=== PATIENT | male | born 1950 | race Caucasian/White ===

== ENCOUNTER 2017-08-06 13:35 | Outpatient (CLI) | payer MEDICARE ==
--- NOTE | 2017-08-06 16:19 | MRI ---
LUMBAR SPINE MRI WITHOUT IV CONTRAST: History: 67-year-old male with history of lumbar radiculopathy and right hip and leg pain for three weeks. Technique: Multiplanar, multisequence MRI examination of the lumbar spine is performed. FINDINGS: The conus medullaris is unremarkable terminating at L1-2. There is some generalized disc desiccation changes and ligament and facet hypertrophic changes. No significant central canal, lateral recess, or foraminal stenosis at L1-2 or L2-3. L3-4: There is diffuse disc bulging with ligament and facet hypertrophic changes with mild lateral re cess stenosis and an annular fissure. L4-5: Diffuse disc bulging with mild central canal and moderate bilateral lateral recess stenosis and moderate to severe bilateral foraminal stenosis. L5-S1: Severe diffuse disc bulging with somewhat more focal central protrusion with moderate central canal and lateral recess stenosis and moderate to severe bilateral foraminal stenosis. There is some mixed endplate changes at L5-S1 including some prominent type I changes. IMPRESSION: Significant disc bulging with central canal and lateral recess and foraminal stenosis at L5-S1 with m arked type 1 endplate changes. Disc bulging with annular fissure and mild to moderate canal, lateral recess, and foraminal stenosis at L4-5. Bilateral recess stenosis at L3-4 with annular fissure. POS: EFRAIN
== END 2017-08-06 13:36 | disposition home or self-care (01) ==
LOC: SCSMRI 13:35
PROVIDERS: ATTEND Family Medicine
DX: M51.16 Intervertebral disc disorders with radiculopathy, lumbar region (principal); M99.53 Intervertebral disc stenosis of neural canal of lumbar region
CPT/HCPCS: 72148

== ENCOUNTER 2018-02-06 13:01 | Outpatient (CLI) | payer MEDICARE ==
[~2018-02-06 13:01] MED LIST: Iopamidol 370 76% 100 ML VIAL ONE
--- NOTE | 2018-02-06 14:26 | CT ---
CT ARTERIOGRAM CHEST WITH AND WITHOUT IV CONTRAST WITH 3D MIP IMAGING: Date: 02/06/18 HISTORY: Aortic ectasia. FINDINGS: No focal parenchymal lung mass, infiltrate, pleural fluid, or pneumothorax. No enlarged lymph nodes a re evident within the mediastinum. There is prominent calcification throughout the arterial structures, including the coronary arteries. No enlarged lymph nodes. Normal branching of the great vessels from the aortic arch. No filling defects are evident within the thoracic aorta. Ascending aorta just above the aortic valve is 4.4 cm AP diameter. The upper descending aorta is 3.2 cm. The aorta just above the level of the d iaphragm is 2.7 cm. IMPRESSION: 1. Mild ectasia ascending aorta. No evidence of dissection. 2. Prominent atherosclerosis. POS: EFRAIN
== END 2018-02-06 13:02 | disposition home or self-care (01) ==
LOC: SCSCT 13:01
PROVIDERS: ATTEND Internal Medicine Cardiovascular Disease
DX: I77.819 Aortic ectasia, unspecified site (principal); I70.90 Unspecified atherosclerosis
CPT/HCPCS: 71275; 82565

== ENCOUNTER 2019-08-30 11:23 | Observation (INO) | payer MEDICARE ==
[2019-08-30 12:00] LABS: #Eosinphils 0.6 thou/uL (0.0-0.7); #Lymphocytes 1.8 thou/uL (1.20-3.40); #Monocytes 0.9 thou/uL (0.11-0.59); #Neutrophils 4.8 thou/uL (1.40-6.50); %Basophils 0.3 % (0.0-1.0); %Lymphocytes 22.6 % (21.0-51.0); %Monocytes 10.7 % (0.0-10.0); %Neutrophils 59.4 % (42.0-75.0); Hemoglobin 15.1 g/dL (14.0-18.0); Mean Corpuscular HGB CONC 33.4 g/dL (32.0-36.0); Mean Corpuscular Hemoglobin 32.3 pg (27.0-31.0); Mean Corpuscular Volume 96.8 fL (78.0-98.0); Mean Platelet Volume 9.6 fL (7.4-10.4); Platelet Count 183 thou/uL (130-400); RBC Distribution Width 13.7 % (11.5-14.5); Red Blood Cell (RBC) Count 4.69 mill/uL (4.70-6.10); White Blood Cell (WBC) Count 8.1 thou/uL (4.8-10.8)
[2019-08-30 12:30] LABS: ALT (SGPT) 19 U/L (8-55); AST (SGOT) 24 U/L (5-34); Albumin 4.2 g/dL (3.4-4.8); Alkaline Phosphatase 79 U/L (40-110); Anion Gap 13 mmol/L (10-20); BUN (Urea Nitrogen) 16 mg/dL (8.4-25.7); Bilirubin, Total 0.9 mg/dL (0.2-1.2); CK (CPK) 86 U/L (30-200); Calc. Creatinine Clearance 0 mL/min (70-130); Calcium 9.4 mg/dL (7.8-10.44); Carbon Dioxide 27 mmol/L (23-31); Chloride 106 mmol/L (98-107); Estimated GFR-MDRD 65; Globulin 2.7 g/dL (2.4-3.5); Glucose 113 mg/dL (83-110); Lipase 32 U/L (8-78); Potassium 4.6 mmol/L (3.5-5.1); Protein, Total 6.9 g/dL (5.8-8.1); Sodium 141 mmol/L (136-145)
--- NOTE | 2019-08-30 12:30 | CT ---
Exam: CT brain PROVIDED CLINICAL HISTORY: Syncope COMPARISON: 04/23/2015 FINDINGS: The ventricular system is normal in size and morphology. No evidence for intracranial hemorrhage or mass effect. The extracranial soft tissues and osseous structures demonstrate no evidence for an acute abnormality. Chronic microvascular ischemic changes are demonstrated with remote lacunar infarc tions involving right caudate and left lentiform nuclei. Vascular calcifications are seen. IMPRESSION: No evidence for intracranial hemorrhage or mass effect.
--- NOTE | 2019-08-30 12:41 | RAD ---
EXAM: Portable chest PROVIDED CLINICAL HISTORY: Syncope COMPARISON: 10/28/2015 FINDINGS: Cardiac and mediastinal silhouette is within normal limits. No focal consolidation, pleural fluid or pneumothorax evident. Median sternotomy changes are again seen. IMPRESSION: No evidence for an acute cardiopulmonary process.
[2019-08-30] MEDS ORDERED: Acetaminophen 500 MG TAB ONE (14:05)
[2019-08-30] MEDS ORDERED: Aspirin Chewable 81 MG TAB ONE (14:05)
[2019-08-30 15:02] LABS: Bilirubin Negative (Negative); Blood, Urine Negative (Negative); Clarity Clear (Clear); Glucose, Urine (Dipstick) Normal (Negative); Leukocyte Negative Leu/uL (Negative); Nitrite Negative (Negative); Protein, Urine (Dipstick) Negative (Neg-Trace); Urobilinogen Normal mg/dL (Less than 2)
[2019-08-30 16:41] LABS: Troponin I Less than 0.010 ng/mL (< 0.028)
[2019-08-30] MEDS ORDERED: Labetalol HCl 100 MG/20 ML VIAL SLOW IVP PRN (16:52)
[2019-08-30] MEDS ORDERED: hydrALAZINE 20 MG/ML VIAL SLOW IVP PRN (16:52)
--- NOTE | 2019-08-30 17:05 | PDOC.HHP ---
Hospitalist HPI - History of Present Illness Dizziness, Passing out History of Present Illness: PCP: Dr. Handy ([place]) The patient is a 69/M with PMH significant for CAD, CABG x 3, HTN, HLD, that presents to the ER for the above complaint. The patient reports that he "passed out" after attempting to sit up in bed this morning. His spouse witnessed the event and states that his eyes rolled to the back of his head and he fell back and to his left side as he was sitting up in bed. Spouse denies any post-ictal state. Reports mild headache for past couple days, denies any focal weakness, slurred speech or difficulty swallowing. Denies any recent head trauma or falls. Denies any chest pain or heart palpitations. Denies any recent surgery or changes in medications. Denies any fever or chills. ED Course: T 98.2, BP 180/95, HR 47, RR 18, Sp02 97% RA EKG SB 47 bpm Trop negative CXR negative for acute cardiopulmonary process CT brain negative for acute hemorrhage UA unremarkable Given: 500mls NS bolus tylenol 1gm ASA 324mg Hospitalist ROS - Review of Systems Constitutional: denies: fever, chills, sweats, weakness, malaise, other Eyes: denies: pain, vision change, conjunctivae inflammation, eyelid inflammation, redness, other ENT: denies: ear pain, ear discharge, nose pain, nose discharge, nose congestion , mouth pain, mouth swelling, throat pain, throat swelling, other Respiratory: denies: cough, dry, shortness of breath, hemoptysis, SOB with excertion, pleuritic pain, sputum, wheezing, other Cardiovascular: denies: chest pain, palpitations, orthopnea, paroxysmal noc. dyspnea, edema, light headedness, other Gastrointestinal: denies: nausea, vomiting, abdominal pain, diarrhea, constipation, melena, hematochezia, other Genitourinary: denies: dysuria, frequency, incontinence, hematuria, retention, other Musculoskeletal: denies: neck pain, shoulder pain, arm pain, back pain, hand pain, leg pain, foot pain, other Skin: denies: rash, lesions, marvin, bruising, other Neurological: denies: numbness, change in speech, confusion Hospitalist History - Past Medical History Source: patient, family Cardiac: reports: CAD, HTN, Hyperlipidemia Pulmonary: reports: asthma Gastrointestinal: reports: GERD Psych: reports: Anxiety, Depression, Other (ADHD) Rheumatologic: reports: Gout Renal/: reports: Benign prostatic enlarg. Endocrine: reports: no pertinent history Dermatology: reports: no pertinent history - Past Surgical History Past Surgical History: reports: CABG, Total Knee Replacement (Left), Other ( right rotator cuff) - Family History Family History: reports: cardiac disorder - Social History Smoking Status: Never smoker Alcohol: reports: Occassional Drugs: reports: none Living Situation: With Family Occupation: Lives with spouse in [place], retired from [employer] Activity level: independent ambulation - Exam General Appearance: NAD, awake alert Eye: PERRL, anicteric sclera ENT: normocephalic atraumatic, moist mucosa Neck: supple, no JVD, no thyromegaly, no lymphadenopathy, no carotid bruit Heart: RRR, no murmur, no gallops, no rubs, normal peripheral pulses Respiratory: CTAB, no wheezes, no rales, no ronchi Gastrointestinal: soft, non-tender, non-distended, normal bowel sounds, no guarding, no rigidity Extremities: no clubbing, no edema Skin: no lesions, no rashes Neurological: cranial nerve grossly intact, no focal deficits Musculoskeletal: normal tone, normal strength Psychiatric: normal affect, A&O x 3 Hospitalist Results - Labs Result Diagrams: 08/30/19 11:51 08/30/19 11:51 Lab results: WBC 8.1 thou/uL (4.8-10.8) 08/30/19 11:51 Hgb 15.1 g/dL (14.0-18.0) 08/30/19 11:51 Hct 45.4 % (42.0-52.0) 08/30/19 11:51 MCV 96.8 fL (78.0-98.0) 08/30/19 11:51 Plt Count 183 thou/uL (130-400) 08/30/19 11:51 Neutrophils % 59.4 % (42.0-75.0) 08/30/19 11:51 Sodium 141 mmol/L (136-145) 08/30/19 11:51 Potassium 4.6 mmol/L (3.5-5.1) 08/30/19 11:51 Chloride 106 mmol/L (98-107) 08/30/19 11:51 Carbon Dioxide 27 mmol/L (23-31) 08/30/19 11:51 BUN 16 mg/dL (8.4-25.7) 08/30/19 11:51 Creatinine 1.11 mg/dL (0.7-1.3) 08/30/19 11:51 Glucose 113 mg/dL (83-110) H 08/30/19 11:51 Calcium 9.4 mg/dL (7.8-10.44) 08/30/19 11:51 Total Bilirubin 0.9 mg/dL (0.2-1.2) 08/30/19 11:51 AST 24 U/L (5-34) 08/30/19 11:51 ALT 19 U/L (8-55) 08/30/19 11:51 Alkaline Phosphatase 79 U/L (40-110) 08/30/19 11:51 Creatine Kinase 86 U/L (30-200) 08/30/19 11:51 Troponin I Less than 0.010 ng/mL (< 0.028) 08/30/19 16:10 B-Natriuretic Peptide 44.1 pg/mL (0-100) 08/30/19 11:51 Serum Total Protein 6.9 g/dL (5.8-8.1) 08/30/19 11:51 Albumin 4.2 g/dL (3.4-4.8) 08/30/19 11:51 Lipase 32 U/L (8-78) 08/30/19 11:51 Urine Ketones Negative mg/dL (Negative) 08/30/19 14:50 Urine Blood Negative (Negative) 08/30/19 14:50 Urine Nitrite Negative (Negative) 08/30/19 14:50 Ur Leukocyte Esterase Negative Kraig/uL (Negative) 08/30/19 14:50 - EKG Interpretation EKG: sinus bradycardia, 47 bpm - Radiology Interpretation Chest x-ray Status: report reviewed by me CT scan - head Status: report reviewed by me Hospitalist H&P A/P - Plan Plan: Impression Syncope R/O CVA HTN, chronic HLD, chronic CAD, chronic GERD Gout Anxiety and Depression ADHD Plan: hospital monitor Trend troponins Order MRI brain and CD US Obtain most recent Echo/MULTIMEDIA TECHNICIAN from [facility] (Dr. Morin) Consult Cardiology - Dr. Morin PT/OT Continue ASA/Plavix Restart home meds when reconciled GI and DVT prophylaxis Full Code JAMESOA Rosana Gaviria [phone]
[2019-08-30 20:08] LABS: Troponin I 0.019 ng/mL (< 0.028)
[2019-08-31 01:39] VITALS: BMI 27.7
[2019-08-31 04:43] VITALS: TEMP 97.9
[2019-08-31 04:58] LABS: #Basophils 0.1 thou/uL (0.0-0.2); #Eosinphils 0.5 thou/uL (0.0-0.7); #Lymphocytes 2.2 thou/uL (1.20-3.40); #Monocytes 0.9 thou/uL (0.11-0.59); #Neutrophils 3.9 thou/uL (1.40-6.50); %Basophils 1.1 % (0.0-1.0); %Eosinophils 6.8 % (0.0-10.0); %Lymphocytes 28.6 % (21.0-51.0); %Neutrophils 51.5 % (42.0-75.0); Hemoglobin 13.7 g/dL (14.0-18.0); Mean Corpuscular Hemoglobin 31.6 pg (27.0-31.0); Mean Corpuscular Volume 95.7 fL (78.0-98.0); Mean Platelet Volume 9.6 fL (7.4-10.4); Platelet Count 170 thou/uL (130-400); RBC Distribution Width 13.7 % (11.5-14.5); Red Blood Cell (RBC) Count 4.34 mill/uL (4.70-6.10); White Blood Cell (WBC) Count 7.6 thou/uL (4.8-10.8)
[2019-08-31 05:16] LABS: Anion Gap 13 mmol/L (10-20); BUN (Urea Nitrogen) 18 mg/dL (8.4-25.7); Calc. Creatinine Clearance 85 mL/min (70-130); Calcium 8.8 mg/dL (7.8-10.44); Carbon Dioxide 26 mmol/L (23-31); Chloride 108 mmol/L (98-107); Estimated GFR-MDRD 77; Glucose 94 mg/dL (83-110); Potassium 3.7 mmol/L (3.5-5.1); Sodium 143 mmol/L (136-145)
[2019-08-31 08:19] LABS: Cardiac Risk 3.9 (Less than 4.5)
[2019-08-31] MEDS ORDERED: DULoxetine 60 MG CAP PO SCH (09:00)
[2019-08-31] MEDS ORDERED: clonazePAM 0.5 MG TABLET PO SCH (09:00)
[2019-08-31] MEDS ORDERED: Aspirin 81 mg Enteric Coated Tablet PO SCH (09:00)
[2019-08-31] MEDS ORDERED: Atenolol 25 MG TAB PO SCH (09:00)
[2019-08-31] MEDS ORDERED: Enoxaparin Sodium 40 MG/0.4 ML SYRINGE SC SCH (09:00)
[2019-08-31] MEDS ORDERED: Finasteride 5 MG TAB PO SCH ×2 (09:00)
[2019-08-31] MEDS ORDERED: ATENOLOL 50 MG PO SCH (09:00)
[2019-08-31] MEDS ORDERED: Lisinopril 20 MG TAB PO SCH (09:00)
[2019-08-31] MEDS ORDERED: Non-Formulary Item 1 EACH (Lisinopril [Zestril] 40 MG) PO SCH (09:00)
[2019-08-31] MEDS ORDERED: Atenolol 50 MG TAB PO SCH (09:00)
[2019-08-31] MEDS ORDERED: Clopidogrel Bisulfate 75 MG TAB PO SCH (09:00)
--- NOTE | 2019-08-31 09:02 | ULT ---
CAROTID DOPPLER: Date; 08/31/2019 PROVIDED CLINICAL HISTORY: Syncope. FINDINGS: Del Cid scale and color Doppler sonography with spectral analysis was performed of the extracranial montelongo tid system bilaterally. There is no sonographic evidence for hemodynamically significant internal car otid artery stenosis by peak systolic velocity or ratio criteria. Antegrade flow is seen in the verte bral arteries. Scattered atherosclerotic plaque is demonstrated bilaterally. IMPRESSION: No sonographic evidence for hemodynamically significant internal carotid artery stenosis. POS: TPC
--- NOTE | 2019-08-31 09:09 | MRI ---
BRAIN MRI WITHOUT CONTRAST: Date: 08/31/2019 COMPARISON: None. HISTORY: Evaluate for acute infarction, clinical concern for stroke. History of syncope. TECHNIQUE: Multiplanar, multisequence MR imaging of the brain without contrast. FINDINGS: The diffusion-weighted imaging demonstrates no evidence for acute infarction. The axial gradient echo imaging demonstrates no evidence for intracranial hemorrhage. There are a few scattered foci of increased T2 and FLAIR signal within the periventricular and deep w mingo matter, most prominent adjacent to the body of the left lateral ventricle anteriorly, most consi stent with small vessel disease. Arterial flow-voids at the axial level of the skull base appear unre markable on the T2-weighted imaging. Regional bone marrow signal intensity appears within normal limi ts. Arterial flow-voids at axial level of skull base appear grossly unremarkable. IMPRESSION: No MR evidence for intracranial hemorrhage or acute infarction. POS: PENG
[2019-08-31] MEDS: Acetaminophen 325 MG TAB PO PRN ×2 (09:39→13:32)
--- NOTE | 2019-08-31 10:33 | CON ---
DATE OF CONSULTATION: 08/31/2019 REASON FOR CONSULTATION: Syncope. HISTORY OF PRESENT ILLNESS: Mr. Gaviria is a very pleasant 69-year-old gentleman with past medical history of CAD, status post bypass surgery, who recently presented with syncope. He states he had 2 episodes of lightheadedness and dizziness prior to this episode. He then had a debbi syncopal episode. No nausea, vomiting, chest pain, pressure, shortness of breath, or associated symptoms present. He is found to be bradycardic with heart rate in the 40s. He is currently on atenolol 50 mg one p.o. q.a.m. in addition to Ritalin. He stopped taking Ritalin 2 days ago due to lightheadedness and dizziness. PAST MEDICAL HISTORY: Hypertension, CAD status post bypass surgery, diabetes mellitus, hypertension, depression. HOME MEDICATIONS: Include; 1. Testosterone. 2. Clonazepam. 3. Ritalin. 4. Atenolol. 5. Plavix. 6. Bupropion. 7. Cyclobenzaprine. 8. Lisinopril. 9. Atorvastatin. 10. Aspirin. 11. Finasteride. 12. Dulcolax. 13. Hydrocodone. 14. Nitrostat. 15. Duloxetine. PAST SURGICAL HISTORY: Bypass x3 in 2002. SOCIAL HISTORY: No current tobacco or alcohol use. REVIEW OF SYSTEMS: A 10-point review of systems is reviewed and is as above, otherwise negative. PHYSICAL EXAMINATION: GENERAL: Patient is a pleasant male who is in no acute distress. The patient appears their stated age. VITAL SIGNS: Blood pressure 157/89, pulse 48, temperature afebrile. NEUROLOGIC: The patient is alert and oriented x3 with no focal neurologic deficits. HEENT: Sclerae without icterus. Mouth has moist mucous membranes with normal pallor. NECK: No JVD. Carotid upstroke brisk. No bruits bilaterally. LUNGS: Clear to auscultation with unlabored respirations. BACK: No scoliosis or kyphosis. CARDIAC: Regular rate and rhythm with normal S1 and S2. No S3 or S4 noted. No significant rubs, murmurs, thrills, or gallops noted throughout the precordium. PMI is not displaced. There is no parasternal heave. ABDOMEN: Soft, nontender, nondistended. No peritoneal signs present. No hepatosplenomegaly. No abnormal striae. EXTREMITIES: 2+ femoral and 2+ dorsalis pedis pulses. No cyanosis, clubbing, or edema. SKIN: No gross abnormalities. PERTINENT LABORATORY DATA: Hemoglobin 13.7, hematocrit 41.6. Creatinine 0.96. Last stress test dated 12/2018; cardiac stress study, no significant ischemia with LVEF 51%. IMPRESSION: 1. Syncope. 2. Coronary artery disease. 3. Status post bypass surgery. RECOMMENDATIONS: Mr. Gaviria's last LVEF estimated 59% with no ischemia present on stress study performed six months ago. His symptoms likely related to bradycardia from atenolol. I would recommend stopping atenolol. I also counseled Mr. Gaviria on the CV risk of Ritalin. I am unsure whether this is truly playing a part. I would recommend MRI and carotid duplex. If felt to be negative and his heart rate improves during this hospitalization, will be okay for discharge with a 3-week event recorder. His BNP is also low, not suggesting cardiomyopathy whether systolic or diastolic dysfunction. Job ID: [id number]
[2019-08-31 12:51] VITALS: BP 131/79
[2019-08-31] MEDS ORDERED: traZODone HCl 50 MG TAB PO SCH (21:00)
[2019-08-31] MEDS ORDERED: Non-Formulary Item 1 EACH (Trazodone Hcl [Trazodone Hcl] 100 MG) PO SCH (21:00)
[2019-08-31] MEDS ORDERED: Atorvastatin Calcium 10 MG TAB PO SCH (21:00)
--- NOTE | 2019-08-31 22:49 | DIS ---
DATE OF ADMISSION: 08/30/2019 DATE OF DISCHARGE: 08/31/2019 DISCHARGE DISPOSITION: Home with outpatient physical therapy. FOLLOWUP: With Cardiology, Dr. Morin and primary care physician, Dr. Handy, as scheduled. No driving until cleared by Cardiology. Event monitor has been arranged. DISCHARGE MEDICATION: Atenolol was discontinued. All other home medications including aspirin and Plavix were left unchanged. INPATIENT DIRECTOR SEMICONDUCTOR: Cardiology, Dr. Morin. BRIEF HOSPITAL COURSE: Patient is a 69-year-old male with coronary artery disease, status post CABG; hypertension; and hyperlipidemia, presented to the emergency room after an episode of syncope. Please refer to the history and physical by nurse practitioner, Dwayne Kumar, for further details. The patient was admitted to the hospital with a diagnosis of syncope of unclear etiology. MRI of the brain was negative for acute CVA. Carotid Doppler was negative for hemodynamically significant stenosis. Please note that patient has had echocardiogram in the last few months at Dr. Morin's office. For this reason, this was not repeated. His chest x-ray was negative. CT scan of the brain was negative. Troponins were negative. Telemetry monitoring was negative for significant arrhythmias. Event monitor has been arranged. He was evaluated by Cardiology, Dr. Morin. Due to bradycardia, atenolol was discontinued. He understands the cardiovascular risk of Ritalin. However, it is unsure whether this is the cause of syncope. He has been cleared by Cardiology for discharge with an event monitor. No driving until cleared by Cardiology. FINAL DIAGNOSES: 1. Syncope of unclear etiology. Cerebrovascular accident ruled out. 2. Hypertension. 3. Hyperlipidemia. 4. Coronary artery disease, status post bypass. 5. Gastroesophageal reflux disease. 6. Anxiety. 7. Attention-deficit/hyperactivity disorder. 8. Gout. 9. Chronic kidney disease, stage 2. SIGNIFICANT LABORATORIES: 1. TSH 1.5. 2. Fasting lipid showed triglyceride 208, cholesterol 160, LDL 77, and HDL 41. Orthostatic vitals were negative. Patient understands the above plan of care. Job ID: [id number]
--- NOTE | 2019-09-04 15:45 | EKG ---
Test Reason : DIZZINESS Blood Pressure : / mmHG Vent. Rate : 047 BPM Atrial Rate : 047 BPM P-R Int : 150 ms QRS Dur : 090 ms QT Int : 466 ms P-R-T Axes : 017 -32 025 degrees QTc Int : 412 ms Sinus bradycardia Left axis deviation Moderate voltage criteria for LVH, may be normal variant Abnormal ECG Confirmed by REUBEN SMITH, KARI ([id number]), publication editor NAV RINALDI ([id number]) on 09/04/2019 3:45:19 PM Referred By: Confirmed By:KARI ALEXIS MD
== END 2019-08-31 15:39 | disposition home or self-care (01) ==
LOC: ERS 11:23 → 2SE 19:18
PROVIDERS: ADMIT Emergency Medicine; ATTEND Emergency Medicine
DX: R55 Syncope and collapse (principal); I12.9 Hypertensive chronic kidney disease with stage 1 through stage 4 chronic kidney disease, or unspecified chronic kidney disease; E11.22 Type 2 diabetes mellitus with diabetic chronic kidney disease; N18.2 Chronic kidney disease, stage 2 (mild); E78.5 Hyperlipidemia, unspecified; I25.10 Atherosclerotic heart disease of native coronary artery without angina pectoris; K21.9 Gastro-esophageal reflux disease without esophagitis; M10.9 Gout, unspecified; F41.9 Anxiety disorder, unspecified; F32.9 Major depressive disorder, single episode, unspecified; F90.9 Attention-deficit hyperactivity disorder, unspecified type; Z79.02 Long term (current) use of antithrombotics/antiplatelets; Z79.899 Other long term (current) drug therapy; Z88.0 Allergy status to penicillin; Z88.8 Allergy status to other drugs, medicaments and biological substances; Z95.1 Presence of aortocoronary bypass graft
CPT/HCPCS: 70450; 70551; 71045; 80048; 80061; 81003; 82550; 83690; 83880; 84484 ×2; 85025; 85379; 87040; 93005; 93880; 96360; 97116; 97139 ×3; 99285; G0378 ×3; 36415; 80053; 84443; J1956

== ENCOUNTER 2021-10-19 14:40 | Outpatient (CLI) | payer MEDICARE ==
[2021-10-19 16:31] LABS: Hemoglobin 15.2 g/dL (13.5-17.5); Mean Corpuscular HGB CONC 32.7 g/dL (32.0-36.0); Mean Corpuscular Volume 94.9 fl (81.2-95.1); Mean Platelet Volume 11.4 fl (7.4-10.4); Platelet Count 269 10x3/uL (150-450); White Blood Cell (WBC) Count 12.1 10x3/uL (3.5-10.5)
[2021-10-19 16:55] LABS: Anion Gap 14 mmol/L (10-20); BUN (Urea Nitrogen) 26 mg/dL (8.4-25.7); Calc. Creatinine Clearance 0 mL/min (70-130); Calcium 10.2 mg/dL (7.8-10.44); Carbon Dioxide 29 mmol/L (23-31); Chloride 101 mmol/L (98-107); Glucose 107 mg/dL (83-110); Potassium 4.8 mmol/L (3.5-5.1); Sodium 139 mmol/L (136-145)
[2021-10-20 16:06] LABS: SARS-CoV-2 PCR by NAA Not Detected (NotDetected)
== END 2021-10-19 14:41 | disposition home or self-care (01) ==
LOC: LABBT 14:40
PROVIDERS: ATTEND Neurological Surgery
DX: Z01.818 Encounter for other preprocedural examination (principal); Z20.822 Contact with and (suspected) exposure to COVID-19
CPT/HCPCS: 80048; 85027; 93005; U0003; U0005; 93010

== ENCOUNTER 2021-10-24 07:29 | Day surgery (SDC) | payer MEDICARE ==
[2021-10-22 12:39] VITALS: BMI 28.8
[2021-10-24] MEDS ORDERED: Levofloxacin 500 mg/D5W 100 ml Premix Bag ONE (08:06)
[2021-10-24] MEDS ORDERED: EPINEPHrine 1 MG/ML AMP ONE (08:13)
[2021-10-24] MEDS ORDERED: Bupivacaine PF 0.5% 30 ML VIAL ONE (08:13)
[2021-10-24] MEDS ORDERED: Clindamycin/D5W 900 mg/50 ml Premix Bag ONE (08:45)
[2021-10-24] MEDS ORDERED: Fentanyl 250 MCG/5 ML VIAL ONE (08:55)
[2021-10-24] MEDS ORDERED: Dexamethasone 20 MG/5 ML VIAL ONE (09:05)
[2021-10-24] MEDS ORDERED: ePHEDrine 50 MG/ML VIAL ONE (09:05)
[2021-10-24] MEDS ORDERED: Lidocaine 1% PF 5 ML VIAL ONE (09:05)
[2021-10-24] MEDS ORDERED: PROPOFOL 200 MG/20 ML VIAL ONE (09:05)
[2021-10-24] MEDS ORDERED: Glycopyrrolate 0.2 MG/ML 5 ML SYRINGE ONE (09:05)
[2021-10-24] MEDS ORDERED: Ketorolac Tromethamine 30 MG/ML VIAL ONE (09:05)
[2021-10-24] MEDS ORDERED: Ondansetron PF 4 MG/2 ML Vial ONE (09:05)
[2021-10-24] MEDS ORDERED: Calcium Chloride 1 GM/10 ML Abboject SYRINGE ONE (09:05)
[2021-10-24] MEDS ORDERED: Rocuronium Bromide 10 MG/ML (10ML VIAL) ONE (09:05)
[2021-10-24] MEDS ORDERED: Tamsulosin HCl 0.4 MG CAP ONE (10:57)
[2021-10-24] MEDS ORDERED: Fentanyl 100 MCG/2 ML VIAL ONE (10:57)
[2021-10-24] MEDS ORDERED: Acetaminophen/Codeine 30-300mg Tablet ONE (14:28)
== END 2021-10-24 15:54 | disposition home or self-care (01) ==
LOC: SDC 07:29
PROVIDERS: ATTEND Neurological Surgery
PROC: 01NB0ZZ Release Lumbar Nerve, Open Approach (ICD-10-PCS; principal; 2021-10-24)
DX: M48.062 Spinal stenosis, lumbar region with neurogenic claudication (principal); E78.5 Hyperlipidemia, unspecified; I10 Essential (primary) hypertension; Z79.02 Long term (current) use of antithrombotics/antiplatelets; Z79.82 Long term (current) use of aspirin; Z79.899 Other long term (current) drug therapy; Z88.0 Allergy status to penicillin; Z95.1 Presence of aortocoronary bypass graft; Z95.5 Presence of coronary angioplasty implant and graft
CPT/HCPCS: 76000; J0171; J1100; J1885; J1956; J2405; J2704; J3010; J3490; S0020

== ENCOUNTER 2022-09-06 09:09 | Outpatient (CLI) | payer MEDICARE | END 2022-09-06 09:10 | disposition home or self-care (01) | LOC: SCSMRI 09:09 | PROVIDERS: ATTEND Family Medicine | DX: M51.37 Other intervertebral disc degeneration, lumbosacral region (principal); M47.816 Spondylosis without myelopathy or radiculopathy, lumbar region; M48.061 Spinal stenosis, lumbar region without neurogenic claudication; G95.19 Other vascular myelopathies; Z98.890 Other specified postprocedural states | CPT/HCPCS: 72148 ==

== ENCOUNTER 2022-10-16 12:48 | Outpatient (CLI) | payer MEDICARE | END 2022-10-16 12:49 | disposition home or self-care (01) | LOC: SCSMRI 12:48 | PROVIDERS: ATTEND Anesthesiology Pain Medicine | DX: M16.11 Unilateral primary osteoarthritis, right hip (principal); M25.451 Effusion, right hip; M76.891 Other specified enthesopathies of right lower limb, excluding foot; S43.431D Superior glenoid labrum lesion of right shoulder, subsequent encounter ==